=== PATIENT | male | born 1945 | race African-American/Black ===

== ENCOUNTER 2021-01-09 06:09 | Inpatient (IN) | payer OTHER ==
[2021-01-04 12:25] VITALS: BMI 32.5
[2021-01-09] MEDS ORDERED: CELECOXIB 200 MG CAPSULE PO ONE (06:30)
[2021-01-09] MEDS ORDERED: TRANEXAMIC ACID 1000 MG/10 ML VIAL IVPUSH ONE (06:30)
[2021-01-09] MEDS ORDERED: CEFAZOLIN 3 GM in DEXTROSE 5%-WATER - 100 ML IVPB ONE (06:30)
[2021-01-09] MEDS ORDERED: CELECOXIB 200 MG CAPSULE ONE (06:58)
[2021-01-09] MEDS ORDERED: MIDAZOLAM HCL 2 MG/2 ML SINGLE DOSE VIAL ONE (07:07)
[2021-01-09] MEDS ORDERED: BUPIVACAINE LIPOSOME/PF (EXPAREL) 266 MG/20 ML VIAL ONE (07:07)
[2021-01-09] MEDS ORDERED: BUPIVACAINE HCL 50 ML ONE ×2 (07:08→07:52)
[2021-01-09] MEDS ORDERED: SODIUM CHLORIDE 0.9% P/F 10 ML VIAL IJ ONE (07:08)
[2021-01-09] MEDS ORDERED: VANCOMYCIN 1,000 MG VIAL (RESTRICTED TO ID ONLY) ONE (07:17)
[2021-01-09] MEDS ORDERED: ceFAZolin SODIUM 1 GM VIAL ONE ×2 (07:17→07:56)
[2021-01-09] MEDS ORDERED: SUCCINYLCHOLINE CHLORIDE 200 MG/10 ML SYRINGE ONE (07:55)
[2021-01-09] MEDS ORDERED: PROPOFOL 20 ML ONE (07:55)
[2021-01-09] MEDS ORDERED: TRANEXAMIC ACID 1000 MG/10 ML VIAL ONE (07:56)
[2021-01-09] MEDS ORDERED: ONDANSETRON 4 MG/2 ML VIAL IVPUSH PRN (07:58)
[2021-01-09] MEDS ORDERED: MAG HYDROX/AL HYDROX/SIMETH 30 ML UNIT-DOSE CUP PO PRN (07:58)
[2021-01-09] MEDS ORDERED: MAGNESIUM HYDROX 2400MG/30ML ORAL SUSPENSION 30 ML CUP PO PRN (07:58)
[2021-01-09] MEDS ORDERED: LACTATED RINGERS SOLUTION 1,000 ML IV SCH (08:00)
[2021-01-09] MEDS ORDERED: DEXAMETHASONE SOD PHOSPHATE 4 MG/1 ML VIAL ONE (08:27)
[2021-01-09] MEDS ORDERED: ONDANSETRON 4 MG/2 ML VIAL ONE (08:27)
[2021-01-09] MEDS ORDERED: oxyCODONE HCL 5 MG TABLET PO PRN (08:52)
[2021-01-09] MEDS ORDERED: ACETAMINOPHEN 325 MG TABLET (FP) PO SCH (10:00)
[2021-01-09] MEDS ORDERED: ACETAMINOPHEN 325 MG TABLET (FP) ONE (11:05)
[2021-01-09] MEDS: oxyCODONE HCL 10 MG SUSTAINED ACTING TABLET PO SCH ×2 (11:29→21:32)
[2021-01-09] MEDS: amLODIPine BESYLATE 5 MG TABLET (FP) PO SCH (11:29)
[2021-01-09] MEDS: MULTIVITAMINS (DAILY MVI) TABLET (FP) PO SCH (11:29)
[2021-01-09] MEDS: PANTOPRAZOLE 40 MG TABLET PO SCH (11:29)
[2021-01-09] MEDS: SENNOSIDES/DOCUSATE COMBO (SENNA PLUS) TABLET (UD) PO SCH ×2 (11:29→21:31)
[2021-01-09] MEDS ORDERED: REFRIGERATED ANITBIOTICS ONE ×2 (15:35→23:48)
[2021-01-09] MEDS: CEFAZOLIN 3 GM in DEXTROSE 5%-WATER - 100 ML IVPB SCH ×2 (16:49→23:51)
[2021-01-09] MEDS: ACETAMINOPHEN 325 MG TABLET (FP) PO SCH ×2 (17:00→23:51)
[2021-01-09] MEDS: oxyCODONE HCL 5 MG TABLET PO PRN (21:32)
[2021-01-10] MEDS: oxyCODONE HCL 5 MG TABLET PO PRN (06:08)
[2021-01-10] MEDS: ACETAMINOPHEN 325 MG TABLET (FP) PO SCH ×3 (06:09→18:16)
[2021-01-10 07:23] LABS: HEMOGLOBIN 12.2 GM/dl (11.7-16.9); MCH 29.1 pg (25.7-33.7); MCHC 32.1 g/dl (32.0-35.9); MEAN CELL VOLUME 90.6 fl (80-96); MEAN PLT VOLUME 8.2 fl (7.5-11.1); PLATELET COUNT 244 K/MM3 (134-434); RDW 14.4 % (11.9-15.9); WHITE BLOOD COUNT 8.3 K/mm3 (4.0-10.8)
[2021-01-10] MEDS: PANTOPRAZOLE 40 MG TABLET PO SCH (10:34)
[2021-01-10] MEDS: amLODIPine BESYLATE 5 MG TABLET (FP) PO SCH (10:34)
[2021-01-10] MEDS: ASPIRIN 325 MG TABLET PO SCH (10:34)
[2021-01-10] MEDS: MULTIVITAMINS (DAILY MVI) TABLET (FP) PO SCH (10:34)
[2021-01-10] MEDS: SENNOSIDES/DOCUSATE COMBO (SENNA PLUS) TABLET (UD) PO SCH ×2 (10:35→21:41)
[2021-01-10] MEDS: oxyCODONE HCL 10 MG SUSTAINED ACTING TABLET PO SCH ×2 (10:35→21:41)
[2021-01-10] MEDS ORDERED: SODIUM CHLORIDE 500 ML IV ONE (13:00)
[2021-01-11] MEDS: ACETAMINOPHEN 325 MG TABLET (FP) PO SCH ×3 (00:06→11:31)
[2021-01-11 07:37] LABS: HEMATOCRIT 33.1 % (35.4-49); HEMOGLOBIN 11.1 GM/dl (11.7-16.9); MCH 30.1 pg (25.7-33.7); MCHC 33.4 g/dl (32.0-35.9); MEAN CELL VOLUME 90.2 fl (80-96); MEAN PLT VOLUME 8.5 fl (7.5-11.1); PLATELET COUNT 227 K/MM3 (134-434); RBC 3.67 M/mm3 (4.00-5.60); RDW 13.8 % (11.9-15.9); WHITE BLOOD COUNT 10.2 K/mm3 (4.0-10.8)
[2021-01-11] MEDS: ASPIRIN 325 MG TABLET PO SCH (07:42)
[2021-01-11 08:49] VITALS: BP 112/54; PULSE 79; TEMP 97.7
[2021-01-11] MEDS: oxyCODONE HCL 10 MG SUSTAINED ACTING TABLET PO SCH (09:04)
[2021-01-11] MEDS: amLODIPine BESYLATE 5 MG TABLET (FP) PO SCH (09:04)
[2021-01-11] MEDS: PANTOPRAZOLE 40 MG TABLET PO SCH (09:05)
[2021-01-11] MEDS: MULTIVITAMINS (DAILY MVI) TABLET (FP) PO SCH (09:05)
[2021-01-11] MEDS: SENNOSIDES/DOCUSATE COMBO (SENNA PLUS) TABLET (UD) PO SCH (09:07)
== END 2021-01-11 14:44 | disposition home health service (06) | DRG 470 ==
LOC: FM/S 06:09
PROVIDERS: ADMIT Orthopaedic Surgery; ATTEND Orthopaedic Surgery
PROC: 8E0Y0CZ Robotic Assisted Procedure of Lower Extremity, Open Approach (ICD-10-PCS; 2021-01-09)
PROC: 0SRD0J9 Replacement of Left Knee Joint with Synthetic Substitute, Cemented, Open Approach (ICD-10-PCS; principal; 2021-01-09 08:33)
DX: M17.12 Unilateral primary osteoarthritis, left knee (principal); I10 Essential (primary) hypertension; K42.9 Umbilical hernia without obstruction or gangrene
CPT/HCPCS: 36415; 73560-TC-LT-FY; 85027; 88305-TC; 88311-TC; 93005; 94760; 97010-GP; 97116-GP; 97163-GP